=== PATIENT | female | born 1985 | race Caucasian/White ===

== ENCOUNTER 2017-09-05 18:34 | Emergency (ER) | payer BC ==
[~2017-09-05] VITALS: Ht 165.1 cm; Wt 57.6 kg
[2017-09-05] MEDS ORDERED: NARATRIPTAN HCL 2.5 MG (19:59)
[2017-09-05] MEDS ORDERED: ETHINYL ESTRADIOL (19:59)
[2017-09-05] MEDS ORDERED: DESOGESTREL (19:59)
[2017-09-05] MEDS ORDERED: TOPIRAMATE 100 MG TABLET (19:59)
[2017-09-05] MEDS ORDERED: KETO60VI (20:00)
--- NOTE | 2017-09-05 21:33 | NUR ---
Urine obtained and sent to Lab. patient in bed, no acute distress noted. All patient needs attended and met. Call light is within reach.
[2017-09-05 21:38] LABS: *URINE HCG, QUAL NEGATIVE (NEGATIVE)
[2017-09-05 23:04] VITALS: BP 121/63
== END 2017-09-05 23:06 | disposition home or self-care (01) ==
LOC: ER 18:35
DX: S30.1XXA Contusion of abdominal wall, initial encounter (principal); S60.221A Contusion of right hand, initial encounter; F17.200 Nicotine dependence, unspecified, uncomplicated; G43.909 Migraine, unspecified, not intractable, without status migrainosus; V43.52XA Car driver injured in collision with other type car in traffic accident, initial encounter; Y92.410 Unspecified street and highway as the place of occurrence of the external cause; Y93.89 Activity, other specified; Y99.8 Other external cause status
CPT/HCPCS: 70450; 73130; 84703; A4663